=== PATIENT | male | born 1965 | race Caucasian/White ===

== ENCOUNTER 2025-05-08 05:52 | Day surgery (SDC) | payer OTHER, SELFPAY ==
[2025-04-24 10:43] LABS: Hematocrit 43.5 % (39.0-52.0); Hemoglobin 15.0 g/dL (13.0-18.0); Mean Corp Hgb Conc. 34.5 g/dL (33.0-37.0); Mean Corpuscular Volume 87.2 fL (80.0-94.0); Nucleated Red Blood Cells % 0 % (-); Platelet Count 136 10^3/uL (130-400); Red Cell Dist. Width 12.3 % (11.5-14.5)
[2025-04-24 10:50] VITALS: BMI 24.8
[2025-04-24 10:53] LABS: ALT (SGPT) 76 U/L (0-50); AST (SGOT) 50 U/L (17-59); Albumin 5.2 g/dl (3.5-5.0); Alkaline Phosphatase 53 U/L (38-126); Blood Urea Nitrogen 14 mg/dl (9-20); Calcium 9.8 mg/dl (8.4-10.2); Carbon Dioxide 26 mmol/L (22-30); Chloride 103 mmol/L (98-107); Estimated Creatinine Clearance 97 ml/min; Glucose 106 mg/dl (70-99); Magnesium 2.0 mg/dl (1.6-2.3); Potassium 4.6 mmol/L (3.5-5.1); Sodium 140 mmol/L (135-145); Total Protein 8.2 g/dl (6.3-8.2); eGFR > 60.00
[2025-04-24 10:57] LABS: INR 1.27; PT 16.4 Sec (11.4-14.6)
[2025-05-08] VITALS (11 sets, daily range): BP systolic 118–150; BP diastolic 59–93; BMI 25.0
[2025-05-08 06:45] LABS: Glucose - Point of Care 122 mg/dl (70-99)
[2025-05-08 08:42] LABS: Glucose - Point of Care 132 mg/dl (70-99)
--- NOTE | 2025-05-08 09:40 | ITS.CL.ABL ---
Sc[employer]ender - Ablation
Ablation
Procedure Report:
ELECTROPHYSIOLOGIC STUDY AND POSSIBLE ABLATION
DATE: May 08, 2025
Primary Care Provider: Dr. Keiko Hector
Primary Office Nurse Practitioner: Dr. Hiwot Jang
INDICATION:
Symptomatic Atrial Fibrillation.
Paroxysmal
HISTORY: See H and P.
Symptomatic AF, poorly controlled with attempted medical therapy
HAS-BLED: 1
Age
CHADSVASc: 1
HTN
PRESENTING RHYTHM: SR
HISTORY: See H and P.
Symptomatic AF, poorly controlled with attempted medical therapy.
ANTIARRHYTHMIC DRUG: Dronedarone discontinued 5 days ago
ANTICOAGULATION: Eliquis 5 mg twice daily
'TIME-OUT': called and confirmed.
SEDATION/ANESTHESIA: provided via the anesthesia department using general anesthesia.
PROCEDURE:
Ultrasound Guidance with real-time visualization of needle insertion and vessel patency performed by ct for femoral venous Vascular Access.
Under real-time US guidance, the needle was advanced with negative pressure into the vein. The needle was seen entering the vessel lumen with a good return of dark red flow, the syringe was removed, non-pulsatile, dark red blood low was noted and
the wire was passed without difficulty, then the needle was removed. US confirmed the wire was in the vein, not going into an artery,
Images were taken and saved for the patient's permanent record. Imaging findings typical femoral venous anatomy. Direct visualization of needle puncture into the femoral vein was observed and recorded.
A decapolar CS catheter was placed within the CS for mapping and pacing.
The intracardiac ultrasound catheter was positioned in the RA for continuous intracardiac ultrasound imaging.
Heparin bolus and infusion to target ACT at 300 -350 seconds was administered. Transseptal puncture was performed. This entailed advancing a sheath with dilator into the superior vena cava and withdrawing both (monitoring intracardiac ultrasound,
fluoroscopy and tip pressure) with the tip oriented toward the atrial septum. The fossa ovalis was engaged (indicated by sudden displacement of the sheath tip as well as tenting of the fossa seen on intracardiac ultrasound).
AcQCross transseptal system was used. Left atrial catheter position was confirmed by echocardiographic imaging, pressure monitoring and fluoroscopy. The sheath was advanced over the dilator and positioned in the left atrium.
The multipolar mapping catheter was initially positioned through the transseptal sheath for high density mapping.
Geometry and voltage mapping was performed using the [employer] multipolar grid catheter. Ensite-X was utilized for three-dimensional electroanatomical mapping.
A 3-D map was created using Ensite-X in Voxel mode. A 3-D reconstructed CT image was compared to the 3-D Navex map to assist in anatomic evaluation, mapping and ablation.
The Vivocha Pulse Select PFA catheter and system was used for cardiac ablation. Catheter positioning was guided and confirmed using both I.C.E. and fluoroscopy.
PV isolation approach was used to electrically isolate each PV ostia (LSPV, LIPV, RSPV, RIPV).
Additional energy applications/additional ablation sets targeted extra PV contributors to atrial fibrillation.
Targets were identified with electroanatomical voltage mapping finding areas of low voltage and complex fractionated electrograms. These areas can be sites for the formation of rotors which can drive and maintain atrial fibrillation. These areas are
known to be significant contributors to initiation and perpetuation of atrial fibrillation.
Targets for additional PFA ablation included:
LA posterior wall at the antrum of the pulmonary veins resulting in wide area circumferential ablation
The ridge of tissue between the left sided pulmonary veins and the left atrial appendage, the ligament of Luis.
At the completion of ablation at the targeted extra PV sites, post ablation mapping finds that the targeted complex fractionated electrograms are eliminated rendering the sites no longer able to contribute to atrial fibrillation. Post ablation high
output pacing at the targeted sites demonstrate lack of capture / exit block.
Post ablation mapping additionally finds that all PVPs were eliminated at each vein demonstrating entrance block. Also pacing around the the circumference of the ostia was performed at 10 ma and 2.0 msec output to assess for exit block. This
demonstrated electrical isolation at each of the pulmonary vein ostia (LSPV, LIPV, RSPV, RIPV).
Programmed electrostimulation including burst atrial pacing as well as delivery of atrial decremental extrastimuli down to atrial ERP failed to induce any sustained arrhythmias.
I.C.E. :
Pre-Ablation Post-Ablation
LVEF: 55 % 55 %
WMA: none none
Pericardial effusion: none none
COMPLICATIONS:
none
SUMMARY:
HE IS ENROLLED IN THE [employer] POST-APPROVAL PULSE SELECT TRIAL
- Mapping and ablation to isolate the PVs
- Additional AF ablation set after PVI.
- 3-D Electroanatomical Mapping
- Intracardiac Ultrasound
- Ultrasound guidance for vascular access
RECOMMENDATIONS:
- Observe in monitored bed.
- Maintain oral anticoagulation, Eliquis 5 mg twice daily.
- Will not resume dronedarone unless there is recurrence of atrial arrhythmias.
- Office visit with me on August 09, 2025
- Continue cardiovascular care with Dr. Hiwot Jang
Copy to:
Primary Care Provider: Dr. Keiko Hector
Primary Office Nurse Practitioner: Dr. Hiwot Jang
[2025-05-08] MEDS: ANESTHETIC LOZENGE 1 LOZENGE PO (10:13)
[2025-05-08 10:23] LABS: Glucose - Point of Care 131 mg/dl (70-99)
--- NOTE | 2025-05-08 13:05 | PTCARENOTE ---
Pt has made arrangements for his nephew to stay overnight with him- Wilbert.
--- NOTE | 2025-05-08 14:12 | W.PN.UPDATE ---
Update Note
Progress Note Update
59 yo WM s/p PVI (Same day) He denies cp, sob, beatriz diet, voiding, amb w/o dizziness, EKG SR, R fem site c/d/i. He will resume Eliquis tonight. He will stop Multaq. Activity restrictions reviewed. He spoke with his nephew who will stay at the house
with him tonight. His neighbor (RN) will check on him too. He will f/u Dr. Celeste in 3 mo and continue cardiac care with Dr. Jang. He is for d/c home after 220p.
[2025-05-10 11:04] LABS: ACT-LR - POC 369 Seconds (116-155)
[2025-05-10 11:04] LABS: ACT-LR - POC 369 Seconds (116-155)
[2025-05-10 11:04] LABS: ACT-LR - POC 334 Seconds (116-155)
== END 2025-05-08 14:23 | disposition home or self-care (01) ==
LOC: CATH 05:52
PROVIDERS: ATTENDING PHYSICIAN Internal Medicine Cardiovascular Disease; FAMILY PHYSICIAN Family Medicine; OTHER PHYSICIAN Internal Medicine Cardiovascular Disease
DX: I48.0 Paroxysmal atrial fibrillation (principal); E78.5 Hyperlipidemia, unspecified; R73.03 Prediabetes; J84.10 Pulmonary fibrosis, unspecified; M19.90 Unspecified osteoarthritis, unspecified site; I25.10 Atherosclerotic heart disease of native coronary artery without angina pectoris; I48.92 Unspecified atrial flutter; J61 Pneumoconiosis due to asbestos and other mineral fibers; Z82.3 Family history of stroke; Z79.899 Other long term (current) drug therapy; Z77.090 Contact with and (suspected) exposure to asbestos; I11.9 Hypertensive heart disease without heart failure; Z87.828 Personal history of other (healed) physical injury and trauma; Z79.01 Long term (current) use of anticoagulants
CPT/HCPCS: C1733; C1732; C1894; C1769; C1892; C1759; 36415; 75572; 80053; 82962; 83735; 85025; 85347; 85610; 86850; 86900; 86901; 93005; 93656; 93657; C1766; Q9967